=== PATIENT | male | born 1970 | race Caucasian/White ===

== ENCOUNTER 2021-01-11 18:17 | Emergency (ER) | payer BC ==
--- NOTE | 2021-01-11 18:50 | EDM.PDOC ---
ED HPI GENERAL MEDICAL PROBLEM - General Chief Complaint: Laceration Stated Complaint: LEFT HAND LACERATION Time Seen by Provider: 01/11/21 18:42 Source of Information: Reports: Patient History Limitations: Reports: No Limitations - History of Present Illness INITIAL COMMENTS - FREE TEXT/NARRATIVE: HISTORY AND PHYSICAL: History of present illness: The patient is a 50-year-old male who presents to the emergency room after cutting his left hand on a broken wine glass this evening. He did not clean the wound. He did not take anything [id number] for the pain. He states his pain is a 1 out of 10. Patient is unsure of his last tetanus vaccination, however he is declining any booster. Patient denies any fever, chills, headache, change in vision, syncope or near syncope. Denies any chest pain, back pain, shortness of breath or cough. Denies any abdominal pain, nausea, vomiting, diarrhea, constipation or dysuria. Has not noted any blood in urine or stool. Patient has been eating and drinking appropriately. Review of systems: As per history of present illness and below otherwise all systems reviewed and negative. Past medical history: As per history of present illness and as reviewed below otherwise noncontributory. Surgical history: As per history of present illness and as reviewed below otherwise noncontributory. Social history: See social history for further information Family history: As per history of present illness and as reviewed below otherwise noncontributory. Physical exam: General: Well developed and well nourished. Alert and orientated x 3. Nontoxic in appearance and in no acute distress. Vital signs are stable and have been reviewed by me. Nursing notes were reviewed. HEENT: Atraumatic, normocephalic, pupils equal and reactive bilaterally, negative for conjunctival pallor or scleral icterus, mucous membranes moist, throat clear, neck supple, nontender, trachea midline. No drooling or trismus noted. No meningeal signs. No hot potato voice noted. Lungs: Clear to auscultation bilaterally. No wheezes, rales, or rhonchi. Chest nontender. Normal work of breathing, no accessory muscles used. Heart: S1S2, regular rate and rhythm without overt murmur, gallops, or rubs. No JVD. No peripheral edema Abdomen: Soft, nondistended, nontender. Normoactive bowel sounds. Negative for masses or costovertebral tenderness. Skin: Left thenar area with 3 cm laceration minimal depth and minimal bleeding. Normal tendon movement. Tender lateral to laceration. CMS intact. Skin warm & dry. Hematologic: No petechiae or purpra. Mucosa appropriate color and normal nail bed color and refill. Extremities: Atraumatic, moves all extremities per self without difficulty or deficits, negative for cords or calf pain. Neurovascular unremarkable. Neuro: Awake, alert, oriented. Cranial nerves II through XII unremarkable. Cerebellum unremarkable. Motor and sensory unremarkable throughout. Exam nonfocal. Psychiatric: Mood and affect are appropriate. Normal thought process. Answering questions appropriately. Notes: *This patient was seen and evaluated during the 2019 SARS-CoV-2 novel coronavirus pandemic period. Community viral transmission is ongoing at time of this encounter and the emergency department is operating under pandemic response procedures. After examination and discussion the patient is agreeable to a left hand x-ray and approximation of his laceration with sutures. Patient does not know when his last tetanus vaccination was, but he is refusing any tetanus booster. The left hand x-ray findings: No acute left hand fracture, dislocation, or radiopaque foreign body. No acute findings. The wound was approximated with 7 sutures. The patient tolerated well. See procedure note. The patient was educated on suture care. The patient states that he will not be coming back to have his sutures removed and that he will be taking them out at home. Educated the patient on need to allow appropriate healing and he is open to using a splint for the first few days to allow healing. I have talked with the patient about today's findings, in addition to providing specific details for plan of care. Reassessment at the time of disposition demonstrates that the patient is in no acute distress. The patient is stable for discharge, counseling was provided and we discussed in great detail signs and symptoms that would prompt them to return to the Emergency Department. Medication, follow up and supportive care measures were reviewed and discussed. Voices understanding and is agreeable to plan of care. Denies any further questions or concerns at this time. Diagnostics: left hand x-ray Therapeutics:lidocaine 1%, Left thumb spica to increase comfort for patient and aid in laceration healing to wear until suture removal. Impression: right thenar laceration Plan: 1. You were evaluated today on an emergent basis. Your left palm laceration was evaluated and repaired using 7 sutures. You can have your sutures out in 7 to 10 days. You can either go to your primary care or return to the emergency department. Keep your suture area clean and dry. Use normal soap and water avoid antibacterial soap. You can use a bacitracin ointment but avoid triple antibiotic ointment. If you are going to be working keep the suture area covered. Monitor for signs of infection such as redness, swelling, increased pain, abnormal drainage. If this happens please seek immediate care. You declined your tetanus booster. 2. You can alternate Tylenol and ibuprofen as needed for pain and fever management. 3. We encourage you to follow up with your primary care provider and/or recommended specialist in the next few days for re-evaluation and further care/management. 4. If your symptoms should worsen, new symptoms develop or any of the signs and symptoms we discussed should arise please return to the emergency room or call 911 (if needed). Definitive disposition and diagnosis as appropriate pending reevaluation and review of above. Left Hand Pain Score (Numeric/FACES): 1 - Related Data Allergies Allergy/AdvReac Type Severity Reaction Status Date / Time No Known Allergies Allergy Verified 01/11/21 18:38 Home Meds: Home Meds . [No Known Home Meds] 01/11/21 [History] ED ROS GENERAL - Review of Systems Review Of Systems: Comprehensive ROS is negative, except as noted in HPI. ED EXAM, SKIN/RASH Exam: See Below (See dictation) ED SKIN PROCEDURES - Laceration/Wound Repair Left Medial Hand Appearance: Superficial Distal NVT: Neuro & Vascular Intact, No Tendon Injury Anesthetic Type: Local Local Anesthesia - Lidocaine (Xylocaine): 1% Plain Local Anesthetic Volume: 2cc Skin Prep: Chlorhexidine (Hibiciens) Saline Irrigation (cc's): 100 Exploration/Debridement/Repair: Wound Explored, No Foreign Material Found Closed with: Sutures Lac/Wound length In cm: 3 Suture Size: 4-0 # of Sutures: 7 Suture Type: Prolene Course - Vital Signs Last Recorded V/S: Last Vital Signs Temp 98.0 F 01/11/21 18:39 Pulse 124 H 01/11/21 18:39 Resp 16 01/11/21 18:39 BP 141/105 H 01/11/21 18:39 Pulse Ox 95 01/11/21 18:39 - Orders/Labs/Meds Orders: Active Orders 24 hr Category Date Time Status DME for Discharge [COMM] Stat Oth 01/11/21 19:42 Ordered Meds: Medications Discontinued Medications Generic Name Dose Route Start Last Admin Trade Name Sara PRN Reason Stop Dose Admin Bacitracin 1 dose 01/11/21 19:41 01/11/21 20:14 Bacitracin Oint 1 Gm U/D Packet TOP 01/11/21 19:42 1 dose ONETIME ONE Administration Lidocaine HCl 5 ml 01/11/21 18:45 01/11/21 18:55 Lidocaine 1% 5 Ml Sdv INJECT 01/11/21 18:46 5 ml ONETIME ONE Administration Departure - Departure Time of Disposition: 19:41 Disposition: Home, Self-Care 01 Condition: Good Clinical Impression: Laceration of hand Qualifiers: Encounter type: initial encounter Foreign body presence: without foreign body Laterality: left Qualified Code(s): S61.412A - Laceration without foreign body of left hand, initial encounter - Discharge Information *PRESCRIPTION DRUG MONITORING PROGRAM REVIEWED*: Not Applicable *COPY OF PRESCRIPTION DRUG MONITORING REPORT IN PATIENT QUINN: Not Applicable Instructions: Laceration Care, Adult Referrals: PCP,None [Primary Care Provider] - Forms: ED Department Discharge Additional Instructions: The following information is given to patients seen in the emergency department who are being discharged to home. This information is to outline your options for follow-up care. We provide all patients seen in our emergency department with a follow-up referral. The need for follow-up, as well as the timing and circumstances, are variable depending upon the specifics of your emergency department visit. If you don't have a primary care physician on staff, we will provide you with a referral. We always advise you to contact your personal physician following an emergency department visit to inform them of the circumstance of the visit and for follow-up with them and/or the need for any referrals to a consulting specialist. The emergency department will also refer you to a specialist when appropriate. This referral assures that you have the opportunity for follow-up care with a specialist. All of these measure are taken in an effort to provide you with optimal care, which includes your follow-up. Under all circumstances we always encourage you to contact your private physician who remains a resource for coordinating your care. When calling for follow-up care, please make the office aware that this follow-up is from your recent emergency room visit. If for any reason you are refused follow-up, please contact the [facility] Emergency Department at and asked to speak to the emergency department charge nurse. Shara Josep [facility] [address] [place] [id number] [facility] [address] [place] [id number] Plan: 1. You were evaluated today on an emergent basis. Your left palm laceration was evaluated and repaired using 7 sutures. You can have your sutures out in 7 to 10 days. You can either go to your primary care or return to the emergency department. Keep your suture area clean and dry. Use normal soap and water avoid antibacterial soap. You can use a bacitracin ointment but avoid triple antibiotic ointment. If you are going to be working keep the suture area covered. Monitor for signs of infection such as redness, swelling, increased pain, abnormal drainage. If this happens please seek immediate care. You declined your tetanus booster. 2. You can alternate Tylenol and ibuprofen as needed for pain and fever management. 3. We encourage you to follow up with your primary care provider and/or recommended specialist in the next few days for re-evaluation and further care/management. 4. If your symptoms should worsen, new symptoms develop or any of the signs and symptoms we discussed should arise please return to the emergency room or call 911 (if needed). Sepsis Event Note (ED) - Evaluation Sepsis Screening Result: No Definite Risk - Focused Exam Vital Signs: Vital Signs Temp Pulse Resp BP Pulse Ox 01/11/21 18:39 98.0 F 124 H 16 141/105 H 95 - My Orders Last 24 Hours: My Active Orders 01/11/21 19:42 DME for Discharge [COMM] Stat - Assessment/Plan Last 24 Hours: My Active Orders 01/11/21 19:42 DME for Discharge [COMM] Stat
[2021-01-11] MEDS ORDERED: Bacitracin Oint 1 GM U/D Packet TOP ONE (19:41)
--- NOTE | 2021-01-11 19:44 | CR ---
INDICATION: Laceration and pain. TECHNIQUE: Three views of the left hand. FINDINGS: No acute left hand fracture, dislocation, or radiopaque foreign body. No acute findings. Dictated by Arnoldo Wang MD @ 01/11/2021 7:41:[address] Arnoldo Wang @ Jan 11 2021 7:41PM
== END 2021-01-11 20:15 | disposition home or self-care (01) ==
LOC: MW.ED 18:17
DX: S61.412A Laceration without foreign body of left hand, initial encounter (principal); W25.XXXA Contact with sharp glass, initial encounter
CPT/HCPCS: 12002; 73130-26-LT; 73130-LT; 99282; 99283-25